=== PATIENT | male | born 1940 | race Caucasian/White ===

== ENCOUNTER → 2022-05-23 13:44 | Outpatient (BNVA) | payer OTHER, SELFPAY | PROVIDERS: Visit Provider Specialist | DX: G24.9 Dystonia, unspecified (principal); G25.3 Myoclonus | CPT/HCPCS: 99205 ==

== ENCOUNTER → 2022-10-09 14:26 | Outpatient (BNVA) | payer OTHER, SELFPAY | PROVIDERS: Referring Provider Specialist; Visit Provider Specialist | DX: G25.3 Myoclonus (principal); G24.9 Dystonia, unspecified | CPT/HCPCS: 99214 ==

== ENCOUNTER → 2023-01-10 14:27 | Outpatient (BNVA) | payer OTHER, SELFPAY | PROVIDERS: Visit Provider Specialist | DX: G25.3 Myoclonus (principal); G24.9 Dystonia, unspecified | CPT/HCPCS: 36415; 82550; 85651; 86341; 99214 ==

== ENCOUNTER → 2023-03-20 12:57 | Outpatient (BNVA) | payer OTHER, SELFPAY | PROVIDERS: Visit Provider Nurse Practitioner Family | DX: L82.0 Inflamed seborrheic keratosis (principal); L57.8 Other skin changes due to chronic exposure to nonionizing radiation; L81.4 Other melanin hyperpigmentation; R20.8 Other disturbances of skin sensation; L53.8 Other specified erythematous conditions | CPT/HCPCS: 17110; 99203 ==

== ENCOUNTER → 2023-04-11 14:21 | Outpatient (BNVA) | payer OTHER, SELFPAY | PROVIDERS: Visit Provider Specialist | DX: G25.3 Myoclonus (principal); Z91.81 History of falling; R51.9 Headache, unspecified | CPT/HCPCS: 99213 ==

== ENCOUNTER → 2023-10-10 10:37 | Outpatient (BNVA) | payer OTHER, SELFPAY | PROVIDERS: Visit Provider Specialist | DX: R29.90 Unspecified symptoms and signs involving the nervous system (principal); G25.3 Myoclonus; G24.9 Dystonia, unspecified; G43.711 Chronic migraine without aura, intractable, with status migrainosus; F44.5 Conversion disorder with seizures or convulsions | CPT/HCPCS: 99214 ==

== ENCOUNTER → 2024-04-08 12:36 | Outpatient (BNVA) | payer OTHER, SELFPAY | PROVIDERS: Visit Provider Specialist | DX: R29.90 Unspecified symptoms and signs involving the nervous system (principal); G25.3 Myoclonus; G24.9 Dystonia, unspecified; G43.711 Chronic migraine without aura, intractable, with status migrainosus; F44.5 Conversion disorder with seizures or convulsions | CPT/HCPCS: 99214 ==

== ENCOUNTER → 2024-04-17 10:01 | Outpatient (BNVA) | payer OTHER, SELFPAY | PROVIDERS: Visit Provider Nurse Practitioner Family | DX: L57.8 Other skin changes due to chronic exposure to nonionizing radiation (principal); L81.4 Other melanin hyperpigmentation; F17.200 Nicotine dependence, unspecified, uncomplicated; L73.8 Other specified follicular disorders; L82.0 Inflamed seborrheic keratosis; D23.122 Other benign neoplasm of skin of left lower eyelid, including canthus | CPT/HCPCS: 17110; 99213 ==

== ENCOUNTER → 2024-10-29 12:02 | Outpatient (BNVA) | payer OTHER, SELFPAY | PROVIDERS: Visit Provider Specialist | DX: R29.90 Unspecified symptoms and signs involving the nervous system (principal); G43.711 Chronic migraine without aura, intractable, with status migrainosus; G25.3 Myoclonus; F44.5 Conversion disorder with seizures or convulsions | CPT/HCPCS: 99214 ==

== ENCOUNTER → 2025-06-17 13:52 | Outpatient (BNVA) | payer OTHER, SELFPAY | PROVIDERS: Visit Provider Nurse Practitioner Family | DX: L82.0 Inflamed seborrheic keratosis (principal); L57.8 Other skin changes due to chronic exposure to nonionizing radiation; L81.4 Other melanin hyperpigmentation | CPT/HCPCS: 17000; 17110; 99213 ==